=== PATIENT | female | born 1945 | race African-American/Black ===

== ENCOUNTER 2019-12-22 14:15 | Emergency (ER) | payer MEDICAID ==
[~2019-12-22] VITALS: Ht 170.2 cm; Wt 68.0 kg
[2019-12-22] MEDS ORDERED: LOPHC2 PO (14:26)
[2019-12-22] MEDS ORDERED: FAMOTIDINE 20MG/2ML VIAL IV STA (15:26)
[2019-12-22] MEDS ORDERED: MAGNESIUM/ALUMINUM HYDROXIDE/SIMETHICONE 30ML UDC PO STA ×2 (15:26)
[2019-12-22] MEDS ORDERED: VISCOUS LIDOCAINE 2% 15 ML UDC PO STA (15:26)
[2019-12-22] MEDS ORDERED: ONDANSETRON HCL 4MG/2ML INJ IV STA (15:26)
[2019-12-22 15:43] LABS: EOSINOPHILS % 4.8 % (0.0-5.0); HEMATOCRIT. 33.5 % (36.0-48.0); HEMOGLOBIN. 11.5 g/dL (12.0-16.0); LYMPHOCYTES % 34.4 % (20.0-50.0); MEAN PLATELET VOLUME 7.8 fl (7.4-10.4); MONOCYTES % 7.5 % (2.0-8.0); NEUTROPHILS % 52.3 % (40.0-76.0); PLATELET 218 x1000/uL (130-400); RED BLOOD CELL COUNT 3.72 mill/uL (4.2-5.4); RED CELL DISTRIBUTION WIDTH 13.6 % (11.6-14.6)
[2019-12-22 15:48] LABS: CHLORIDE 109 mEq/L (98-107)
[2019-12-22 17:29] LABS: CLARITY URINE CLEAR (CLEAR); COLOR URINE DARK YELLOW (YELLOW); KETONES URINE TRACE (NEGATIVE); LEUKOCYTE ESTERASE URINE 2+ (NEGATIVE); NITRITE URINE NEGATIVE (NEGATIVE); OCCULT BLOOD URINE NEGATIVE (NEGATIVE); PH URINE 5.5 (4.5-8.0); PROTEIN URINE 1+ (NEGATIVE); SPECIFIC GRAVITY URINE 1.039 (1.005-1.030)
[2019-12-22 18:07] VITALS: BP 149/56
== END 2019-12-22 19:41 | disposition home or self-care (01) ==
LOC: ER 14:15
DX: N39.0 Urinary tract infection, site not specified (principal); I10 Essential (primary) hypertension; Z79.899 Other long term (current) drug therapy
CPT/HCPCS: 36415; 71045; 74177; 80053; 81003; 83690; 84484; 85025; 87086; 93005; 96374; 96375; 99285; J2405; J3490

== ENCOUNTER 2021-10-28 06:35 | Inpatient (IN) | payer MEDICAID ==
[~2021-10-28] VITALS: Ht 167.6 cm; Wt 54.9 kg
[~2021-10-28 06:35] MED LIST: LOPHC2 PO
[2021-10-28 09:08] LABS: BASOPHILS % 1.5 % (0.0-2.0); EOSINOPHILS % 5.2 % (0.0-5.0); HEMATOCRIT. 33.9 % (36.0-48.0); HEMOGLOBIN. 11.2 g/dL (12.0-16.0); LYMPHOCYTES % 32.7 % (20.0-50.0); MEAN CORPUSCULAR HEMOGLOBIN 29.8 pg (28.0-32.0); MEAN CORPUSCULAR VOLUME 89.9 fL (81.0-99.0); MEAN PLATELET VOLUME 8.7 fl (7.4-10.4); MONOCYTES % 9.9 % (2.0-8.0); NEUTROPHILS % 50.7 % (40.0-76.0); PLATELET 227 x1000/uL (130-400); RED BLOOD CELL COUNT 3.77 mill/uL (4.2-5.4); RED CELL DISTRIBUTION WIDTH 15.1 % (11.6-14.6)
[2021-10-28 09:50] LABS: CLARITY URINE CLEAR (CLEAR); COLOR URINE YELLOW (YELLOW); KETONES URINE NEGATIVE (NEGATIVE); LEUKOCYTE ESTERASE URINE NEGATIVE (NEGATIVE); NITRITE URINE NEGATIVE (NEGATIVE); OCCULT BLOOD URINE NEGATIVE (NEGATIVE); PROTEIN URINE NEGATIVE (NEGATIVE); SPECIFIC GRAVITY URINE 1.017 (1.005-1.030)
[2021-10-28 11:26] LABS: CHLORIDE 108 mEq/L (98-107)
[2021-10-28] MEDS ORDERED: SODIUM CHLORIDE 0.9% 1,000 ML IV ONE (12:30)
[2021-10-28] MEDS ORDERED: DOCUSATE SODIUM 100MG CAPSULE PO PRN (13:00)
[2021-10-28] MEDS ORDERED: ACETAMINOPHEN 325MG TABLET PO PRN ×2 (13:00)
[2021-10-28] MEDS ORDERED: IPRATROPIUM/ALBUTEROL 0.5-3(2.5)MG/3ML NEB HHN PRN (13:00)
[2021-10-28] MEDS ORDERED: ONDANSETRON HCL 4MG/2ML INJ IV PRN (13:00)
[2021-10-28] MEDS ORDERED: HYDROCODONE/ACETAMINOPHEN 5/325MG TABLET PO PRN (13:00)
[2021-10-28] MEDS ORDERED: NALOXONE HCL 0.4MG/ML VIAL IV PRN (13:00)
[2021-10-28] MEDS: CLONIDINE 0.1MG TABLET PO PRN ×2 (13:01→15:39)
[2021-10-28 15:00] VITALS: BP 164/75
[2021-10-28 15:01] VITALS: BP 164/75
[2021-10-28 16:00] VITALS: BP 162/69
[2021-10-28] MEDS: ENOXAPARIN 40MG/0.4ML SYR SUBCUT SCH (16:40)
[2021-10-28 20:00] VITALS: BP 121/62
[2021-10-29] VITALS: BP 120/60
[2021-10-29 08:00] VITALS: BP 196/88
[2021-10-29 12:00] VITALS: BP 137/74
[2021-10-29 16:00] VITALS: BP 102/69
[2021-10-29] MEDS: ENOXAPARIN 40MG/0.4ML SYR SUBCUT SCH (18:19)
[2021-10-29 20:00] VITALS: BP 171/89
[2021-10-30] VITALS: BP 167/89
[2021-10-30 04:00] VITALS: BP 178/91
[2021-10-30] MEDS: CLONIDINE 0.1MG TABLET PO PRN (05:44)
[2021-10-30 08:00] VITALS: BP 118/82
[2021-10-30] MEDS ORDERED: AMLO5TAB88 MT (09:01)
[2021-10-30 12:00] VITALS: BP 108/84
[2021-10-30] MEDS: THIAMINE HCL 100MG TABLET PO SCH (15:12)
[2021-10-30] MEDS: FOLIC ACID 1MG TABLET PO SCH (15:12)
[2021-10-30] MEDS: AMLODIPINE 5MG TABLET PO SCH (15:14)
[2021-10-30 16:00] VITALS: BP 154/91
[2021-10-30 20:00] VITALS: BP 152/77
[2021-10-30] MEDS: ENOXAPARIN 40MG/0.4ML SYR SUBCUT SCH (21:32)
[2021-10-31] VITALS: BP 159/89
[2021-10-31 04:00] VITALS: BP 159/93
[2021-10-31 08:00] VITALS: BP 166/89
[2021-10-31] MEDS: AMLODIPINE 5MG TABLET PO SCH (10:06)
[2021-10-31] MEDS: FOLIC ACID 1MG TABLET PO SCH (10:07)
[2021-10-31] MEDS: THIAMINE HCL 100MG TABLET PO SCH (10:07)
[2021-10-31] MEDS: CLONIDINE 0.1MG TABLET PO PRN (10:09)
[2021-10-31 12:00] VITALS: BP 117/70
[2021-10-31] MEDS: CARVEDILOL 3.125 MG TABLET PO SCH ×2 (13:33→21:00)
[2021-10-31 16:00] VITALS: BP 87/56
[2021-10-31 16:27] LABS: FOLIC ACID (FOLATE) SERUM >20 ng/mL ng/mL (>5.38); VITAMIN B12 SERUM 393 pg/mL (211-911)
[2021-10-31] MEDS: ENOXAPARIN 40MG/0.4ML SYR SUBCUT SCH (18:07)
[2021-10-31 20:00] VITALS: BP 115/55
[2021-11-01] VITALS: BP 131/68
[2021-11-01 04:00] VITALS: BP 160/82
[2021-11-01 08:00] VITALS: BP 145/65
[2021-11-01] MEDS: CARVEDILOL 3.125 MG TABLET PO SCH ×2 (08:53→21:26)
[2021-11-01] MEDS: FOLIC ACID 1MG TABLET PO SCH (08:54)
[2021-11-01] MEDS: AMLODIPINE 5MG TABLET PO SCH ×2 (08:54→21:27)
[2021-11-01] MEDS: THIAMINE HCL 100MG TABLET PO SCH (08:54)
[2021-11-01 12:00] VITALS: BP 135/65
[2021-11-01 12:00] LABS: BASOPHILS % 0.9 % (0.0-2.0); EOSINOPHILS % 4.7 % (0.0-5.0); HEMATOCRIT. 38.7 % (36.0-48.0); HEMOGLOBIN. 12.6 g/dL (12.0-16.0); LYMPHOCYTES % 27.6 % (20.0-50.0); MEAN CORPUSCULAR HEMOGLOBIN 29.5 pg (28.0-32.0); MEAN CORPUSCULAR VOLUME 90.7 fL (81.0-99.0); MEAN PLATELET VOLUME 8.4 fl (7.4-10.4); MONOCYTES % 13.3 % (2.0-8.0); NEUTROPHILS % 53.5 % (40.0-76.0); PLATELET 217 x1000/uL (130-400); RED BLOOD CELL COUNT 4.27 mill/uL (4.2-5.4); RED CELL DISTRIBUTION WIDTH 13.8 % (11.6-14.6)
[2021-11-01 12:25] LABS: CHLORIDE 108 mEq/L (98-107)
[2021-11-01 12:40] LABS: T4 FREE 1.51 ng/dL (0.76-1.46)
[2021-11-01 16:00] VITALS: BP 142/73
[2021-11-01] MEDS: ENOXAPARIN 40MG/0.4ML SYR SUBCUT SCH (17:46)
[2021-11-01 20:00] VITALS: BP 135/72
[2021-11-02] VITALS: BP 125/57
[2021-11-02 04:00] VITALS: BP 151/68
[2021-11-02 08:00] VITALS: BP 160/87
[2021-11-02] MEDS: AMLODIPINE 5MG TABLET PO SCH ×2 (08:22→23:35)
[2021-11-02] MEDS: THIAMINE HCL 100MG TABLET PO SCH (08:22)
[2021-11-02] MEDS: FOLIC ACID 1MG TABLET PO SCH (08:22)
[2021-11-02] MEDS: CARVEDILOL 3.125 MG TABLET PO SCH ×2 (08:23→23:35)
[2021-11-02 09:03] LABS: EOSINOPHILS % 5.7 % (0.0-5.0); HEMATOCRIT. 35.8 % (36.0-48.0); HEMOGLOBIN. 12.1 g/dL (12.0-16.0); LYMPHOCYTES % 32.3 % (20.0-50.0); MEAN CORPUSCULAR HEMOGLOBIN 29.4 pg (28.0-32.0); MEAN CORPUSCULAR VOLUME 87.1 fL (81.0-99.0); MEAN PLATELET VOLUME 8.8 fl (7.4-10.4); MONOCYTES % 11.2 % (2.0-8.0); NEUTROPHILS % 49.8 % (40.0-76.0); PLATELET 251 x1000/uL (130-400); RED BLOOD CELL COUNT 4.11 mill/uL (4.2-5.4); RED CELL DISTRIBUTION WIDTH 13.7 % (11.6-14.6)
[2021-11-02 12:00] VITALS: BP 136/61
[2021-11-02] MEDS: CYANOCOBALAMIN 1000MCG/ML VIAL IM SCH (13:25)
[2021-11-02] MEDS ORDERED: FUROSEMIDE 20MG TABLET PO NR (15:00)
[2021-11-02 16:00] VITALS: BP 111/57
[2021-11-02] MEDS: ENOXAPARIN 40MG/0.4ML SYR SUBCUT SCH (18:03)
[2021-11-02 20:00] VITALS: BP 151/79
[2021-11-03] VITALS: BP 151/82
[2021-11-03 04:00] VITALS: BP 141/74
[2021-11-03] MEDS ORDERED: LEVOTHYROXINE SODIUM 50MCG TABLET PO SCH (07:20)
[2021-11-03 08:00] VITALS: BP 121/81
[2021-11-03] MEDS: AMLODIPINE 5MG TABLET PO SCH (08:51)
[2021-11-03] MEDS: FOLIC ACID 1MG TABLET PO SCH (08:51)
[2021-11-03] MEDS: THIAMINE HCL 100MG TABLET PO SCH (08:51)
[2021-11-03] MEDS: CYANOCOBALAMIN 1000MCG/ML VIAL IM SCH (08:51)
[2021-11-03] MEDS: CARVEDILOL 3.125 MG TABLET PO SCH (08:51)
[2021-11-03 12:00] VITALS: BP 139/73
[2021-11-03] MEDS ORDERED: CARVEDILOL 6.25 MG TABLET PO SCH (21:00)
[2021-11-06 04:11] LABS: 25-HYDROXY VITAMIN D3 25 ng/mL (.)
== END 2021-11-03 15:00 | disposition home health service (06) | DRG 52 ==
LOC: ER 06:51 → EDBEDREQ 12:13 → 6EST 12:25 → EDBEDREQTM 12:27 → EDBEDREQSVC 12:27 → EDBEDREQ 12:27 → ENRESERV 13:28
PROVIDERS: ADMIT Internal Medicine; ATTEND Internal Medicine
DX: G93.41 Metabolic encephalopathy (principal); I50.21 Acute systolic (congestive) heart failure; I11.0 Hypertensive heart disease with heart failure; E86.0 Dehydration; I42.9 Cardiomyopathy, unspecified; G62.9 Polyneuropathy, unspecified; H54.61 Unqualified visual loss, right eye, normal vision left eye; D64.9 Anemia, unspecified; E03.9 Hypothyroidism, unspecified; E53.8 Deficiency of other specified B group vitamins; N39.41 Urge incontinence; F10.21 Alcohol dependence, in remission; R35.0 Frequency of micturition; R47.1 Dysarthria and anarthria; Z88.0 Allergy status to penicillin; I45.10 Unspecified right bundle-branch block
CPT/HCPCS: 36415; 70551; 71045; 80048; 80053; 81003; 82140; 82306; 82607; 82746; 83880; 84439; 84443; 84481; 85025; 92610; 93005; 93306; 93970; 97110; 97116; 97162; 97166; 97530; 99291; J1650; J2405; J3420; J7030

== ENCOUNTER 2022-04-28 23:21 | Emergency (ER) | payer MEDICAID ==
[~2022-04-28] VITALS: Ht 167.6 cm; Wt 64.0 kg
[~2022-04-28 23:21] MED LIST changes: +AMLO5TAB88 MT; -LOPHC2 PO
[2022-04-29 03:22] LABS: BASOPHILS % 0.9 % (0.0-2.0); EOSINOPHILS % 5.8 % (0.0-5.0); HEMATOCRIT. 33.9 % (36.0-48.0); HEMOGLOBIN. 11.3 g/dL (12.0-16.0); LYMPHOCYTES % 22.4 % (20.0-50.0); MEAN CORPUSCULAR HEMOGLOBIN 30.3 pg (28.0-32.0); MEAN CORPUSCULAR VOLUME 90.8 fL (81.0-99.0); MONOCYTES % 7.7 % (2.0-8.0); NEUTROPHILS % 63.2 % (40.0-76.0); PLATELET 240 x1000/uL (130-400); RED BLOOD CELL COUNT 3.73 mill/uL (4.2-5.4); RED CELL DISTRIBUTION WIDTH 13.2 % (11.6-14.6)
[2022-04-29 03:28] LABS: CHLORIDE 102 mEq/L (98-107)
[2022-04-29 03:36] LABS: CLARITY URINE CLEAR (CLEAR); COLOR URINE YELLOW (YELLOW); KETONES URINE NEGATIVE (NEGATIVE); LEUKOCYTE ESTERASE URINE NEGATIVE (NEGATIVE); NITRITE URINE NEGATIVE (NEGATIVE); OCCULT BLOOD URINE NEGATIVE (NEGATIVE); PROTEIN URINE NEGATIVE (NEGATIVE); SPECIFIC GRAVITY URINE 1.012 (1.005-1.030); UROBILINOGEN URINE 0.2 E.U./dL (0.2-1.0)
[2022-04-29 04:00] VITALS: BP 170/78
== END 2022-04-29 06:55 | disposition home or self-care (01) ==
LOC: ER 23:21
DX: R32 Unspecified urinary incontinence (principal); I10 Essential (primary) hypertension
CPT/HCPCS: 36415; 71045; 80053; 81003; 83605; 85025; 87040; 99284; Z7610